=== PATIENT | male | born 1990 | race Caucasian/White ===

== ENCOUNTER 2016-08-15 00:25 | Emergency (ER) | payer OTHER ==
[2016-08-15 05:04] LABS: HEMOGLOBIN 13.6 gm/dl (14.0-17.5); RED BLOOD COUNT 4.65 M/UL (4.20-5.50); WHITE BLOOD COUNT 7.7 K/UL (4.5-11.0)
[2016-08-15 05:26] LABS: BUN/CREATININE RATIO 14 (0-10)
== END 2016-08-15 06:57 | disposition home or self-care (01) ==
LOC: ER1 00:25
PROVIDERS: Family Medicine
DX: A08.4 Viral intestinal infection, unspecified (principal); D72.820 Lymphocytosis (symptomatic); Z87.891 Personal history of nicotine dependence
CPT/HCPCS: 36415; 80053; 81001; 82150; 83690; 85025; 87086; 96361; 96374; 96375; 99284; J1885; J2405; J7030; J7050; Q9962

== ENCOUNTER 2020-04-02 12:07 | Emergency (ER) | payer OTHER ==
[~2020-04-02 12:07] MED LIST: EXPECTORANT200 MG PO; FLONASE 0.05% N16 GM; IBUPROFEN600 MG PO; OMNICEF 300 MG300 MG PO; TAMIFLU75 MG PO; ZITHROMAX250 MG PO; ZOFRAN 4 MG TAB4 MG PO
[2020-04-02 12:46] LABS: WHITE BLOOD COUNT 6.9 K/UL (4.5-11.0)
[2020-04-02 13:21] LABS: BUN/CREATININE RATIO 9 (0-10)
== END 2020-04-02 15:05 | disposition home or self-care (01) ==
LOC: ER1 12:07
PROVIDERS: Family Medicine
DX: R55 Syncope and collapse (principal); R42 Dizziness and giddiness; R53.1 Weakness; Z87.891 Personal history of nicotine dependence; Z91.041 Radiographic dye allergy status
CPT/HCPCS: 71045; 80053; 82550; 82553; 83874; 84484; 85025; 85379; 93005; 99284; J7030

== ENCOUNTER 2020-04-09 01:29 | Emergency (ER) | payer OTHER ==
[2020-04-09 02:31] LABS: HEMOGLOBIN 16.4 gm/dl (14.0-17.5); RED BLOOD COUNT 5.65 M/UL (4.20-5.50); WHITE BLOOD COUNT 8.1 K/UL (4.5-11.0)
[2020-04-09 03:14] LABS: BUN/CREATININE RATIO 9 (0-10)
== END 2020-04-09 04:00 | disposition home or self-care (01) ==
LOC: ER1 01:29
PROVIDERS: Family Medicine
DX: F41.0 Panic disorder [episodic paroxysmal anxiety] (principal); R03.0 Elevated blood-pressure reading, without diagnosis of hypertension; R07.89 Other chest pain
CPT/HCPCS: 71045; 80048; 80053; 80307; 81001; 82550; 82553; 83874; 84439; 84443; 84484; 85025; 93005; 99284